=== PATIENT | male | born 1970 | race Caucasian/White ===

== ENCOUNTER → 2018-04-14 09:55 | Outpatient (CLI) | payer MEDICARE ==
[2018-04-15 09:14] LABS: HEPATITIS C ANTIBODY <0.1 (0.0-0.9)
== END | disposition home or self-care (01) ==
LOC: D.LAB 09:55 → EDSTATUS 11:45
PROVIDERS: Internal Medicine Gastroenterology
DX: K76.0 Fatty (change of) liver, not elsewhere classified (principal); R79.89 Other specified abnormal findings of blood chemistry; R10.84 Generalized abdominal pain; R12 Heartburn; R11.0 Nausea

== ENCOUNTER 2018-06-16 17:09 | Observation (INO) | payer BC ==
[~2018-06-16] VITALS: Ht 177.8 cm; Wt 120.5 kg
--- NOTE | ~2018-06-16 | MORECARE ---
CASE MANAGEMENT DISCHARGE SUMMARY PATIENT: JOJO SANTORO UNIT: [id number] ADM DATE: 06/17/18 AGE: 48 : 74 SEX: M ROOM/BED: D.6233 AUTHOR: STELLA LEARY PHYSICIAN: REFERRING PHYSICIAN: CONG JOHNSON MD DATE OF SERVICE: 06/23/18 Discharge Plan Patient Name: JOJO SANTORO Facility: [facility]:[place] : 1970 Planned Disposition: Home Anticipated Discharge Date: 06/21/18 Discharge Date: 06/21/2018 Expected LOS: 4 Initial Reviewer: [id number] Initial Review Date: 06/23/2018 Generated: 06/23/18 6:05 pm Patient Name: JOJO SANTORO Page [id number] at [id number] All edits/amendments must be made on the electronic document DICTATION DATE: 06/23/181704 COLLISION TECHNICIAN: GRAY 06/23/181704 RPT#: [id number] DC DATE:06/21/18 STATUS: DIS IN [facility] [address] [place] [address] END OF REPORT
[2018-06-17 00:05] VITALS: BP 121/81
[2018-06-17 04:00] VITALS: BP 109/67
[2018-06-17 08:34] VITALS: BP 130/54
[2018-06-17 12:05] VITALS: BP 141/93
[2018-06-17 16:55] VITALS: BP 148/90
[2018-06-17 20:00] VITALS: BP 130/75
[2018-06-18] VITALS: BP 106/53
[2018-06-18 04:00] VITALS: BP 118/66
[2018-06-18 05:29] LABS: BASOPHILS 0.4 % (0-2); EOSINOPHILS 2.1 % (0-7); HEMATOCRIT 40.8 % (42.0-54.0); HEMOGLOBIN 14.2 g/dL (13.5-17.5); IMMATURE GRANULOCYTES 0.1 % (0-5); LYMPHOCYTES 30.9 % (15-50); MCH 30.7 pg (26.0-34.0); MCHC 34.8 g/dL (31.0-37.0); MCV 88.1 fL (80.0-100.0); MONOCYTES 9.9 % (2-11); NEUTROPHILS 56.6 % (40-80); PLATELET COUNT 93 10x3/uL (130-400); RBC 4.63 10x6/uL (4.20-6.10); RDW 12.5 % (11.5-14.5); WBC 7.8 10x3/uL (4.8-10.8)
[2018-06-18 05:53] LABS: ALKALINE PHOSPHATASE 36 U/L (46-116); ALT (SGPT) 50 U/L (10-68); BILIRUBIN - TOTAL 0.76 mg/dL (0.2-1.3); CALC OSMOLALITY 276 mosm/kg (275-300); CALCIUM 8.2 mg/dL (8.5-10.1); CARBON DIOXIDE 29.5 mmol/L (21.0-32.0); CHLORIDE - SERUM 105 mmol/L (98-107); CREATININE - SERUM 0.9 mg/dL (0.6-1.3); GLUCOSE 109 mg/dL (74-106); POTASSIUM - SERUM 4.2 mmol/L (3.5-5.1); PROTEIN - SERUM 6.2 g/dL (6.4-8.2); SODIUM 139 mmol/L (136-145); UREA NITROGEN 7 mg/dL (7-18); eGFR NON AFRICAN AMERICAN > 90 mL/min (90-120)
[2018-06-18 09:24] VITALS: BP 147/66
[2018-06-18 13:28] VITALS: BP 158/104
[2018-06-18 16:47] VITALS: BP 151/85
[2018-06-19 04:00] VITALS: BP 126/79
[2018-06-19 06:49] LABS: BASOPHILS 0.1 % (0-2); EOSINOPHILS 0.1 % (0-7); HEMATOCRIT 44.3 % (42.0-54.0); HEMOGLOBIN 15.6 g/dL (13.5-17.5); IMMATURE GRANULOCYTES 0.3 % (0-5); LYMPHOCYTES 9.5 % (15-50); MCHC 35.2 g/dL (31.0-37.0); MCV 87.9 fL (80.0-100.0); MONOCYTES 0.9 % (2-11); NEUTROPHILS 89.1 % (40-80); PLATELET COUNT 108 10x3/uL (130-400); RBC 5.04 10x6/uL (4.20-6.10); RDW 12.4 % (11.5-14.5); WBC 7.9 10x3/uL (4.8-10.8)
[2018-06-19 07:12] LABS: CALC OSMOLALITY 275 mosm/kg (275-300); CALCIUM 8.9 mg/dL (8.5-10.1); CARBON DIOXIDE 27.3 mmol/L (21.0-32.0); CHLORIDE - SERUM 101 mmol/L (98-107); CREATININE - SERUM 0.9 mg/dL (0.6-1.3); GLUCOSE 194 mg/dL (74-106); SODIUM 136 mmol/L (136-145); UREA NITROGEN 10 mg/dL (7-18); eGFR NON AFRICAN AMERICAN > 90 mL/min (90-120)
[2018-06-19 10:48] VITALS: BP 136/89
[2018-06-19 14:38] VITALS: BP 127/59
[2018-06-19 16:55] VITALS: BP 130/78
[2018-06-20] VITALS (8 sets, daily range): BP systolic 114–140; BP diastolic 61–72; Ht 177.8 cm; Wt 120.5 kg
[2018-06-20 06:05] LABS: BASOPHILS 0 % (0-2); EOSINOPHILS 0.1 % (0-7); HEMATOCRIT 40.2 % (42.0-54.0); HEMOGLOBIN 13.8 g/dL (13.5-17.5); IMMATURE GRANULOCYTES 0.3 % (0-5); LYMPHOCYTES 7.5 % (15-50); MCH 30.4 pg (26.0-34.0); MCHC 34.3 g/dL (31.0-37.0); MCV 88.5 fL (80.0-100.0); MEAN PLATELET VOLUME 9.7 fL (7.4-10.4); MONOCYTES 4.2 % (2-11); NEUTROPHILS 87.9 % (40-80); PLATELET COUNT 126 10x3/uL (130-400); RBC 4.54 10x6/uL (4.20-6.10); RDW 12.6 % (11.5-14.5)
[2018-06-20 06:22] LABS: CALC OSMOLALITY 280 mosm/kg (275-300); CALCIUM 8.6 mg/dL (8.5-10.1); CHLORIDE - SERUM 103 mmol/L (98-107); GLUCOSE 191 mg/dL (74-106); POTASSIUM - SERUM 4.1 mmol/L (3.5-5.1); SODIUM 138 mmol/L (136-145); eGFR NON AFRICAN AMERICAN 86 mL/min (90-120)
[2018-06-20 06:25] LABS: UREA NITROGEN 13 mg/dL (7-18)
[2018-06-20 06:33] LABS: WBC 15.3 10x3/uL (4.8-10.8)
[2018-06-21 01:16] VITALS: BP 134/60
[2018-06-21 05:50] VITALS: BP 122/66
[2018-06-21 06:21] LABS: CALC OSMOLALITY 280 mosm/kg (275-300); CALCIUM 8.4 mg/dL (8.5-10.1); CARBON DIOXIDE 24.9 mmol/L (21.0-32.0); CHLORIDE - SERUM 104 mmol/L (98-107); CREATININE - SERUM 0.9 mg/dL (0.6-1.3); GLUCOSE 214 mg/dL (74-106); POTASSIUM - SERUM 4.5 mmol/L (3.5-5.1); SODIUM 137 mmol/L (136-145); UREA NITROGEN 16 mg/dL (7-18); eGFR NON AFRICAN AMERICAN > 90 mL/min (90-120)
[2018-06-21 06:25] LABS: BASOPHILS 0.1 % (0-2); EOSINOPHILS 0 % (0-7); HEMOGLOBIN 13.5 g/dL (13.5-17.5); IMMATURE GRANULOCYTES 0.5 % (0-5); LYMPHOCYTES 6.3 % (15-50); MCH 30.6 pg (26.0-34.0); MCHC 33.8 g/dL (31.0-37.0); MEAN PLATELET VOLUME 9.6 fL (7.4-10.4); MONOCYTES 3.9 % (2-11); NEUTROPHILS 89.2 % (40-80); PLATELET COUNT 148 10x3/uL (130-400); RBC 4.41 10x6/uL (4.20-6.10); RDW 12.8 % (11.5-14.5); WBC 17.7 10x3/uL (4.8-10.8)
[2018-06-21 06:27] LABS: MCV 90.7 fL (80.0-100.0)
[2018-06-21 09:17] VITALS: BP 125/69
[2018-06-21] MEDS ORDERED: MEDROL DOSE PACK4 MG PO (09:34)
[2018-06-21] MEDS ORDERED: NORCO-10 PO (09:34)
[2018-06-21] MEDS ORDERED: ROBAXIN500 MG PO (09:35)
[2018-06-21 11:08] VITALS: BP 133/70
== END 2018-06-21 14:42 | disposition home or self-care (01) ==
LOC: D.ER 17:09 → OBSVTIME 06-17 00:35 → D.M2 06-17 00:35 → D.EDHOLD 06-17 00:35 → D.M2 06-17 00:44
PROVIDERS: Family Medicine; Internal Medicine Nephrology
DX: M50.221 Other cervical disc displacement at C4-C5 level (principal); K21.9 Gastro-esophageal reflux disease without esophagitis

== ENCOUNTER → 2018-10-19 07:33 | Outpatient (CLI) | payer BC ==
[~2018-10-19 07:33] MED LIST: MEDROL DOSE PACK4 MG PO; NORCO-10 PO; ROBAXIN500 MG PO
== END | disposition home or self-care (01) ==
LOC: D.RAD 07:33 → D.MRI 09:00 → D.RAD 14:00
PROVIDERS: ATTEND Orthopaedic Surgery
DX: S43.491A Other sprain of right shoulder joint, initial encounter (principal)